=== PATIENT | male | born 1940 | race Caucasian/White ===

== ENCOUNTER 2021-10-10 02:27 | Inpatient (IN) | payer OTHER, MEDICARE ==
[2021-10-10] VITALS (8 sets, daily range): BP systolic 97–128; BP diastolic 44–74
[~2021-10-10] VITALS: Ht 175.3 cm; Wt 55.3 kg
[2021-10-10] MEDS ORDERED: COREG6.25 MG PO (02:37)
[2021-10-10] MEDS ORDERED: LANOXIN 0.25M0.25 M1 PO (02:37)
[2021-10-10] MEDS ORDERED: LASIX 40 MG TAB40 MG PO (02:38)
[2021-10-10 02:58] LABS: INFLUENZA A ANTIGEN Negative (Negative); INFLUENZA B ANTIGEN Negative (Negative)
[2021-10-10 03:16] LABS: ABSOLUTE BASOPHILS 0.1 thou/uL (0.0-0.2); ABSOLUTE LYMPHOCYTES 1.2 thou/uL (0.8-5.3); ABSOLUTE MONOCYTES 0.7 thou/uL (0.0-1.2); ABSOLUTE NEUTROPHILS 9.2 thou/uL (1.6-8.1); BASOPHILS 0.5 %; EOSINOPHILS 0.2 %; HEMATOCRIT 49.1 % (42.0-52.0); HEMOGLOBIN 16.3 gm/dL (14.0-18.0); LYMPHOCYTES 10.7 %; MCH 31.3 pg (26.0-34.0); MCHC 33.1 g/dL (28.0-37.0); MCV 94.4 fL (80.0-100.0); MONOCYTES 6.4 %; MPV 7.1 fl. (7.2-11.1); NUCLEATED RBCS 0 /100WBC; PLATELET COUNT* 377 thou/uL (150-400); POLYS 82.2 %; RDW-CV 13.3 % (10.5-14.5); WBC 11.2 thou/uL (4.0-11.0)
[2021-10-10 03:20] LABS: URINE BILIRUBIN NEGATIVE (Negative); URINE BLOOD NEGATIVE (Negative); URINE CLARITY CLEAR; URINE COLOR YELLOW; URINE GLUCOSE-RANDOM NEGATIVE (Negative); URINE KETONES NEGATIVE (Negative); URINE LEUKOCYTES-REFLEX NEGATIVE (Negative); URINE NITRITE-REFLEX NEGATIVE (Negative); URINE PROTEIN NEGATIVE (Negative); URINE SPECIFIC GRAVITY 1.015 (1.005-1.030); URINE UROBILINOGEN 0.2 E.U./dl (0.2-1.0)
[2021-10-10 03:29] LABS: CALCIUM 9.4 mg/dL (8.5-10.1); CREATININE 1.5 mg/dL (0.6-1.3); POTASSIUM 5.2 mmol/L (3.5-5.1)
[2021-10-10 03:39] LABS: ALBUMIN 3.8 g/dL (3.4-5.0); MAGNESIUM 2.5 mg/dL (1.8-2.4); TOTAL BILIRUBIN 0.6 mg/dL (<0.1-1.0); TOTAL PROTEIN 7.5 g/dL (6.4-8.2)
--- NOTE | 2021-10-10 04:15 | NUR ---
PT REMOVED NASAL CANNULA AND STATES "I DON'T LIKE HOW IT MAKES ME FEEL WHEN IT GOES UP MY NOSE". PT'S OXYGEN SATURATION REMAINS AT OR ABOVE 96% ON ROOM AIR. WILL CONTINUE TO MONITOR.
--- NOTE | 2021-10-10 10:48 | EKG ---
[place] [address] ELECTROCARDIOGRAM REPORT Name: JULIAN ROLON JR Room: [place] [address] ADM IN [facility].#: [id number] Admission: 10/10/21 Attend Phys: Niesha Zavala, Discharge: Date of : 42 Date of Service: 10/10/21 0224 Report #: [id number] THIS REPORT FOR: //name// [facility] ED Test Date: 2021-10-10 Test Time: 02:24:44 Pat Name: JULIAN ROLON Department: Room: [facility] Gender: M Arch Support Technician: RYAN : 1940 Requested By: Morenita Meyer Order Number: [id number] MD: Ziggy Ojead Measurements Intervals [place] Rate: 95 P: 82 MA: 168 QRS: -58 QRSD: 169 T: 105 QT: 414 QTc: 521 Interpretive Statements Sinus rhythm left axis Ventricular trigeminy Probable left atrial enlargement Left bundle branch block No previous ECG available for comparison Electronically Signed On 10-10-2021 10:48:35 MANAGER INTERVENTIONAL by Ziggy Ojeda [email or web address] <ELECTRONICALLY SIGNED> By: Ziggy Ojeda MD, FAC 10/10/21 1048 3 3 Ziggy Ojeda MD, [facility] /EPI
--- NOTE | 2021-10-10 12:43 | NUR ---
PATIENT TO RADIOLOGY FOR LUNG SCAN.
--- NOTE | 2021-10-10 14:07 | NUR ---
PATIENT HAD A 20G IV IN L FA. PATIENT STATED "IT HURT" WHEN IV MEDS HOOKED UP. IV DISCONTINUED. NEW 20G IV PUT IN R FA. CHARTED R FA AC IV NUMBER 1. UNAWARE THERE WAS A L FA IV BEFORE UNTIL GIVEN REPORT. IV NUMBER 2 CHARTED CORRECTLY. IV NUMBER 1 CHARTED COMPLETE, SHOULD BE CHARTED DISCONTINUED.
--- NOTE | 2021-10-10 14:26 | NUR ---
Attempted to see pt x2. No discharge needs anticipated.
--- NOTE | 2021-10-10 17:04 | 2DMMODE ---
[place] [address] 2 D/M-MODE ECHOCARDIOGRAM Name: JULIAN ROLON JR Room: [address] IN [place]#: [id number] Admission: 10/10/21 Attend Phys: Niesha Zavala, Discharge: Date of : 42 Date of Service: 10/10/21 1704 Report #: [id number] THIS REPORT FOR: cc: FAM - Family physician unknown FAM - Family physician unknown Ziggy Ojeda MD [facility] ~ APPROVED REPORT Study performed: 10/10/2021 14:35:29 EXAM: Comprehensive 2D, Doppler, and color-flow Echocardiogram Patient Location: In-Patient Room #: [facility] Status: routine BSA: 1.67 HR: 89 bpm BP: 120/68 mmHg Rhythm: NSR Other Information Study Quality: Good Indications Congestive Heart Failure 2D Dimensions IVSd: 11.85 (7-11mm) LVOT Diam: 20.08 (18-24mm) LVDd: 59.13 mm PWd: 12.14 (7-11mm) LVDs: 54.75 (25-40mm) Aortic Root: 33.74 mm Volumes Left Atrial Volume (Systole) LA ESV Index: 36.30 mL/m2 Aortic Valve AoV Peak Navi.: 0.82 m/s AO Peak Gr.: 2.66 mmHg LVOT Max P.58 mmHg AO Mean Gr.: 1.48 mmHg LVOT Mean P.77 mmHg LVOT Max V: 0.63 m/s AO V2 VTI: 13.53 cm LVOT Mean V: 0.40 m/s FLACO (VTI): 2.26 cm2 LVOT V1 VTI: 9.65 [place] [address] 2 D/M-MODE ECHOCARDIOGRAM Name: JULIAN ROLON JR Room: [address] IN ..#: [id number] Admission: 10/10/21 Attend Phys: Niesha Zavala, Discharge: Date of : 42 Date of Service: 10/10/21 1704 Report #: [id number] Pulmonary Valve PV Peak Navi.: 1.15 m/s PV Peak Gr.: 5.28 mmHg Tricuspid Valve RAP Estimate: 5.00 mmHg TR Peak Gr.: 23.71 mmHg RVSP: 28.00 mmHg PA Pressure: 28.00 mmHg Left Ventricle Left ventricle is mildly dilated. There is severe global hypokinesis of the left ventricle. Mild concentric left ventricular hypertrophy. Left ventricular systolic function is severely decreased. LVEF is 15-20%. Grade I - abnormal relaxation pattern. Right Ventricle The right ventricle is normal size. The right ventricular systolic function is normal. Atria Left atrium is mildly dilated. The right atrium size is normal. Aortic Valve The aortic valve is normal in structure. No aortic regurgitation is present. There is no aortic valvular stenosis. Mitral Valve The mitral valve is normal in structure. Moderately severe mitral regurgitation. No evidence of mitral valve stenosis. Tricuspid Valve The tricuspid valve is normal in structure. Mild tricuspid regurgitation. No pulmonary hypertension. Pulmonic Valve The pulmonary valve is normal in structure. There is no pulmonic valvular regurgitation. Great Vessels The aortic root is normal in size. IVC is normal in size and collapses >50% with inspiration. Pericardium There is no pericardial effusion. <Conclusion> [place] [address] 2 D/M-MODE ECHOCARDIOGRAM Name: JULIAN ROLON JR Room: [address] IN .R.#: [id number] Admission: 10/10/21 Attend Phys: Niesha Zavala, Discharge: Date of : 42 Date of Service: 10/10/211703 Report #: [id number] Mild concentric left ventricular hypertrophy. LVEF is 15-20%. Left atrium is mildly dilated. Moderately severe mitral regurgitation. <ELECTRONICALLY SIGNED> By: Ziggy Ojeda MD, [facility] 10/10/211703 03 1704 Ziggy Ojeda MD, FACC /INF
--- NOTE | 2021-10-11 00:21 | NUR ---
PT ALERT ORIENTED ANXIOUS. CLONAZEPAM GIVEN HS. PT RESTING QUIETLY AFTER, STOCK FEEDER TRACING SR/ST BBB. PT GIVEN TYLENOL PRIOR TO SHIFT CHG. LIDOCAIN CREAM APPLIED TO L HIP, NICKO FEET AND BACK.
[2021-10-11 01:00] VITALS: BP 90/64
[2021-10-11 04:50] LABS: ABSOLUTE LYMPHOCYTES 1.1 thou/uL (0.8-5.3); BASOPHILS 0.2 %; EOSINOPHILS 0.1 %; HEMATOCRIT 40.9 % (42.0-52.0); LYMPHOCYTES 11.7 %; MCH 31.1 pg (26.0-34.0); MCHC 33.8 g/dL (28.0-37.0); MCV 92.1 fL (80.0-100.0); MONOCYTES 10.6 %; MPV 7.1 fl. (7.2-11.1); NUCLEATED RBCS 0 /100WBC; PLATELET COUNT* 318 thou/uL (150-400); POLYS 77.4 %; RBC 4.44 mil/uL (4.50-6.00); RDW-CV 13.1 % (10.5-14.5)
[2021-10-11 05:06] LABS: ANION GAP 4 mmol/L (7-16); BUN 27 mg/dL (7-18); CALCIUM 8.8 mg/dL (8.5-10.1); CHLORIDE 92 mmol/L (98-107); CO2 34 mmol/L (21-32); CREATININE 1.7 mg/dL (0.6-1.3); GLUCOSE 95 mg/dL (70-99); HDL CHOLESTEROL 84 mg/dL (>40); POTASSIUM 3.7 mmol/L (3.5-5.1); SODIUM 130 mmol/L (136-145); TRIGLYCERIDE 63 mg/dL (<150); VLDL 13 mg/dL (<40)
[2021-10-11 05:36] LABS: SERUM ASSESSMENT CLEAR
[2021-10-11 05:37] LABS: CHOLESTEROL 201 mg/dL (<200); LDL CHOLESTEROL 105 mg/dL (<100); TC:HDL 2.4 Ratio (Not establshd)
[2021-10-11 05:43] LABS: HEMOGLOBIN 13.8 gm/dL (14.0-18.0)
[2021-10-11 06:13] VITALS: BP 92/66
[2021-10-11 08:00] VITALS: BP 96/47
[2021-10-11 12:30] VITALS: BP 95/51
[2021-10-11 15:40] VITALS: BP 91/59
[2021-10-11 20:00] VITALS: BP 113/62
[2021-10-12 01:32] VITALS: BP 92/67
--- NOTE | 2021-10-12 03:59 | NUR ---
PATIENT AWAKE MOST OF THIS SHIFT. PT VOIDS YELLOW URINE PER URINAL. PT C/O NASAL DRAINAGE AND COUGHING. THROAT LOZENGES PROVIDED. PT SR WITH BBB + PVC'S ON COMPUTER SCIENCE PROFESSOR. PT SALINE LOCKED ON RT FOREARM. PT DEBNIES NEEDS DURING THIS TIME. FREQUENTLY USED ITEMS AND CALL LIGHT WITHIN REACH. SIDERAILS UPX2 AND BED ALARM ON. WILL CONTINUE TO MONITOR.
[2021-10-12 05:29] LABS: CALCIUM 8.1 mg/dL (8.5-10.1); CREATININE 1.5 mg/dL (0.6-1.3); POTASSIUM 3.1 mmol/L (3.5-5.1)
[2021-10-12 05:53] VITALS: BP 100/43
[2021-10-12 08:00] VITALS: BP 93/68
--- NOTE | 2021-10-12 10:35 | EKG ---
[place] [address] ELECTROCARDIOGRAM REPORT Name: JULIAN ROLON JR Room: [address] ADM IN M.R.#: [id number] Admission: 10/10/21 Attend Phys: Niesha Zavala, Discharge: Date of : 42 Date of Service: 10/10/21 0558 Report #: [id number] THIS REPORT FOR: //name// [facility] ED Test Date: 2021-10-10 Test Time: 05:58:00 Pat Name: JULIAN ROLON Department: Room: [address] Gender: M Mini Bar Attendant: [place] : 1940 Requested By: Niesha Zavala Order Number: [id number] MD: Ziggy Ojeda Measurements Intervals [place] Rate: 98 P: 87 DE: 158 QRS: -59 QRSD: 163 T: 103 QT: 402 QTc: 514 Interpretive Statements Sinus tachycardia Ventricular trigeminy Biatrial enlargement Left bundle branch block Compared to ECG 10/10/2021 02:24:44 Sinus rhythm no longer present Electronically Signed On 10-12-2021 10:35:12 FOREIGN LANGUAGE PROFESSOR by Ziggy Ojeda [email or web address] <ELECTRONICALLY SIGNED> By: Ziggy Ojeda MD, FACC 10/12/21 1035 0558 0558 Ziggy Ojeda MD, FAC /EPI
[2021-10-12 12:00] VITALS: BP 117/54
[2021-10-12 16:00] VITALS: BP 108/47
[2021-10-12 20:00] VITALS: BP 113/64
[2021-10-13 00:51] VITALS: BP 112/62
--- NOTE | 2021-10-13 04:21 | NUR ---
PATIENT AWAKE ALL NIGHT CALLING NURSES STATION. PT SAID TWICE HE WOULD CALL 911 OR AMBULANCE TO TAKE HIM TO [facility] AND ANOTHER HOSPITAL. PT WITH NEEDS WE HAVE BEEN ATTEMPTING TO MEET THROUGHOUT THIS SHIFT BUT PT WAS STILL UNSETTLED AND UNHAPPY. PT GIVEN MEDICATIONS ORDERED. PT REQUESTING LIDOCAINE CREAM BE RUBBED ALL OVER HIS BODY BECAUSE ACHED. PT INFORMED THIS IS FOR LOCALIZED AREA. PT UNHAPPY WITH THIS ANSWER. PT ALSO WANTED SOME MEDS LEFT AT THE BEDSIDE AND BECAME ANGRY WHEN THIS NURSE WOULD NOT LEAVE THEM. ONLY MEDS LEFT AT BEDSIDE WERE COUGH DROPS. PT WOULD REMOVE LEADS TO SUPERVISOR COMPUTER OPERATIONS. LEADS REPLACED MANY TIMES. PT UNHAPPY WITH MOST OF HIS CARE. PT SR ON SUPERVISOR COMPUTER OPERATIONS. VITALS WNL BUT B/P RUNS ON LOWER SIDE OF NORMAL. PT IS AFEBRILE. PT WITH SALINE LOCK IN RT AC AND IS ON ROOM AIR. FREQUENTLY USED ITEMS AND CALL LIGHT WITHIN REACH. SIDERAILS UPX3 AND BED ALARM ON. FREQUENT OBSERVATIONS MADE. WILL CONTINUE TO MONITOR.
[2021-10-13 04:29] LABS: ABSOLUTE BASOPHILS 0.1 thou/uL (0.0-0.2); ABSOLUTE EOSINOPHILS 0.2 thou/uL (0.0-0.7); ABSOLUTE LYMPHOCYTES 1.6 thou/uL (0.8-5.3); ABSOLUTE NEUTROPHILS 4.6 thou/uL (1.6-8.1); BASOPHILS 1.1 %; EOSINOPHILS 2.4 %; HEMATOCRIT 43.5 % (42.0-52.0); HEMOGLOBIN 14.7 gm/dL (14.0-18.0); LYMPHOCYTES 22.1 %; MCH 31.2 pg (26.0-34.0); MCHC 33.9 g/dL (28.0-37.0); MCV 92.2 fL (80.0-100.0); MONOCYTES 13.4 %; MPV 7.3 fl. (7.2-11.1); NUCLEATED RBCS 0 /100WBC; PLATELET COUNT* 336 thou/uL (150-400); RBC 4.72 mil/uL (4.50-6.00); RDW-CV 13.4 % (10.5-14.5); WBC 7.5 thou/uL (4.0-11.0)
[2021-10-13 04:30] VITALS: BP 110/60
[2021-10-13 04:56] LABS: CALCIUM 8.5 mg/dL (8.5-10.1); CREATININE 1.3 mg/dL (0.6-1.3); POTASSIUM 3.9 mmol/L (3.5-5.1); TOTAL BILIRUBIN 0.5 mg/dL (<0.1-1.0); TOTAL PROTEIN 6.1 g/dL (6.4-8.2)
[2021-10-13 08:00] VITALS: BP 99/45
--- NOTE | 2021-10-13 11:47 | CON ---
[address] [address] CONSULTATION Name: JULIAN ROLON JR Room: [address] IN .R.#: [id number] Admission: 10/10/21 Attend Phys: Niesha Zavala MD Discharge: Date of : 42 Report #: [id number] THIS REPORT FOR: cc: FAM - Family physician unknown FAM - Family physician unknown Ziggy Ojeda MD [facility] ~ DATE OF CONSULTATION: 10/10/2021 CARDIOLOGY CONSULTATION HISTORY OF PRESENT ILLNESS: The patient is an 81-year-old single white male, who I was asked to see in the hospital today after complained to being short of breath. Unfortunately, the patient has never been here before. He primarily gets his care at the [facility]. He apparently was admitted to [place] a month ago with pneumonia. Recently, he has been short of breath and coughing. He does note some chest tightness. He denied palpitations, fever, syncope, edema. He called the EMS and brought to the Emergency Room last night, was admitted for further evaluation and treatment. PAST MEDICAL HISTORY: He has had no surgical procedures. He has a history of congestive heart failure, COPD. CURRENT MEDICATIONS: Carvedilol, digoxin. He takes Lasix as needed for swelling. He uses inhaler. ALLERGIES: HE HAS A PREVIOUS INTOLERANCE TO ANTIHISTAMINES. FAMILY HISTORY: Positive for heart disease. SOCIAL HISTORY: He has been twice. He lives by himself in an apartment in [place], [place]. He smoked a pack of cigarettes a day, quit 2 months ago. He used to drink alcohol every day. No longer drinks alcohol. REVIEW OF SYSTEMS: No history of stroke, liver disease, kidney disease, cancer, psychiatric illness, chronic skin condition. PHYSICAL EXAMINATION: GENERAL: Revealed an elderly male, lying in bed. He appeared in no distress. VITAL SIGNS: He had a blood pressure of 120/60, pulse is 80. He was afebrile. HEENT: He was anicteric. Conjunctivae pink. Mucous membranes moist. NECK: Veins nondistended. CHEST: Revealed decreased breath sounds at the bases. CARDIAC: Regular rate and rhythm, S3 gallop. ABDOMEN: Soft. EXTREMITIES: [place] [address] CONSULTATION Name: JULIAN ROLON JR Room: [address]#: [id number] Admission: 10/10/21 Attend Phys: Niesha Zavala MD Discharge: Date of : 42 Report #: [id number] SKIN: Cool and dry. NEUROLOGIC: Nonfocal. LABORATORY DATA: His ECG on admission showed sinus tachycardia, frequent PVCs, left axis and a left bundle branch block. The patient had an echocardiogram performed today that showed an ejection fraction only 20%, left atrial enlargement, severe mitral regurgitation. His chest x-ray last night, the patient had hyperinflated lung alejandro, small effusions, increased interstitial markings. He actually had a V/Q scan of the chest that showed no evidence of DVT. He had a lung perfusion scan that showed high probability of pulmonary embolus. His lab work, creatinine 1.5. His high sensitivity troponin was 1067. BNP 13,488. Hemoglobin 16.3. His COVID antigen stat test was negative. IMPRESSION AND RECOMMENDATIONS: 1. Acute on chronic systolic heart failure. The patient has been on the beta yonis and digoxin. I would consider adding Aldactone. I would give Lasix as needed. 2. Non-ST elevation myocardial infarction. I would not recommend cardiac catheterization at this time. 3. Previous tobacco abuse. 4. History of alcohol abuse. 5. Chronic kidney disease. <ELECTRONICALLY SIGNED> By: Ziggy Ojeda MD, FACC 10/13/21 1147 1725 Ziggy Ojeda MD, FACC /nt
[2021-10-13] MEDS ORDERED: CARVEDILOL3.125 MG PO (12:07)
[2021-10-13] MEDS ORDERED: ELIQUIS5 MG PO ×2 (12:07)
[2021-10-13 12:51] VITALS: BP 99/45
== END 2021-10-13 13:40 | disposition home or self-care (01) | DRG 177 ==
LOC: M.ERS 02:27 → M.TBA-ER 04:18 → M.2W 14:25
PROVIDERS: Emergency Medicine; Internal Medicine; Internal Medicine Cardiovascular Disease; ADMIT Internal Medicine; ATTEND Internal Medicine
DX: J69.0 Pneumonitis due to inhalation of food and vomit (principal); I26.99 Other pulmonary embolism without acute cor pulmonale; I21.A1 Myocardial infarction type 2; I50.23 Acute on chronic systolic (congestive) heart failure; E87.1 Hypo-osmolality and hyponatremia; N17.9 Acute kidney failure, unspecified; I42.8 Other cardiomyopathies; J44.0 Chronic obstructive pulmonary disease with (acute) lower respiratory infection; I13.0 Hypertensive heart and chronic kidney disease with heart failure and stage 1 through stage 4 chronic kidney disease, or unspecified chronic kidney disease; Z20.822 Contact with and (suspected) exposure to COVID-19; E87.6 Hypokalemia; N18.9 Chronic kidney disease, unspecified; I34.0 Nonrheumatic mitral (valve) insufficiency; J15.6 Pneumonia due to other Gram-negative bacteria; Z88.8 Allergy status to other drugs, medicaments and biological substances; Z79.899 Other long term (current) drug therapy; Z82.49 Family history of ischemic heart disease and other diseases of the circulatory system; Z87.891 Personal history of nicotine dependence